=== PATIENT | male | born 1955 | race Caucasian/White ===

== ENCOUNTER 2024-08-25 15:13 | Outpatient (CLI) | payer MEDICARE, SELFPAY ==
--- NOTE | ~2024-08-25 | XR_ITS ---
AP view of the pelvis and AP and lateral views of the right hip Clinical history: Pain Findings: No acute fracture or dislocation is seen. Osseous alignment is anatomic. Bilateral hip and SI joint spaces are preserved. Soft tissues are unremarkable. Impression: No significant abnormality is seen. Reviewed, dictated and finalized at [facility]. Impression: No significant abnormality is seen.
--- NOTE | ~2024-08-25 | XR_ITS ---
EXAM/ PROCEDURE: XR lumbar spine 2-3V - 08/25/2024 15:35 CDT HISTORY: 69 years old Male with pain in rt hip. NKI COMPARISON: None available TECHNIQUE: Four view(s) FINDINGS/ IMPRESSION: There are no fractures or dislocations.Multilevel degenerative changes are seen. 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 Reviewed, dictated and finalized at location A.
--- OUTSIDE RECORDS SUMMARY | 2024-08-25 16:41 | XMS_ITS | Data Portability ---
Author Organization [place] - [facility], Main Office Address [address] [place] [address] Care Team Providers Care Semiconductor Development Technician Name Role Phone NITISH URRUTIA Primary Care Provider NITISH URRUTIA Referring Provider NITISH URRUTIA Primary Care Provider Assessment Encounter Date Assessment Date Assessment LastModified by Organization Details LastModified Time 06/16/2024 06/16/2024 69 yo M with - DM II, improved - HTG - HLD - HTN - LT KNEE PAIN, chronic - B/L HEARING LOSS, chronic - OBESITY III - H/O LT BUTTOCK ABSCESS - H/O HYPERKALEMIA HbA1c: 12.9(03/14/22) - 7.0(08/14/22) - 7.3(12/13/22) - 8.3(02/25/23) - 7.0(06/05/23) - 7.8(12/10/23) - 6.6(03/01/24) - 7.1(06/07/24) Annual labs: 03/01/24. Annual labs: 02/25/23. X-ray Lt knee: 10/21/22. Annual labs: 03/14/22. D/w pt in detail about his conditions, recent labs & imagines and further plan of care. All meds verified with pt. Meds as directed. Risks Vs benefits of Aspirin 81mg po daily with food explained. Pt agreed. Cont OTC knee sleeve as directed. Diet and exercise explained in detail. BP & DM diary education given and call us if any concerns. Fall risk precautions explained. Cont f/u with [employer] as per schedule. Cont f/u with Ophtho as per schedule. Cont f/u with Surg as per schedule. Cont f/u with Ortho as per schedule. Cont f/u with ENT as per schedule. Offered to refer to Endo; but pt declined. Januvia is too costly for pt. HM: Colonoscopy - Long time ago. Referred to GI. Cologuard 08/26/22, neg. Flu - 03/01/24. Pneumo - 02/25/23, 03/16/24. Tdap - 2022. Shingrix - Pt got it. F/u in 3-4 months. A1c before next visit. Annual labs in 03/12. [email or web address] Not available 06/16/2024 12:04:35 08/12/2024 08/12/2024 This note is dictated and transcribed by [employer]. Title Searcher variances may occur. Despite proofreading, typographical errors may occur. Occasional wrong-word or '[id number]' substitutions may have occurred due to the inherent limitations of voice recording. Read the chart carefully and recognize, using context, where substitutions have occurred. [email or web address] Not available 08/12/2024 12:24:36 Plan of Treatment Reminders Order Date Submit Date Provider Last Modified By Organization Details Last Modified Time Details Appointments Sick/Acut e 2024 02:15P Yon Urrutia MD Not available Not available Not available Follow Up 15 2024 01:30P Yon Urrutia MD Not available Not available Not available Follow Up 15 2024 11:00A Yon Urrutia MD Not available Not available Not available Establish ed Patient 15 2024 10:00A Yon Michelle DPM Not available Not available Not available Lab HbA1c (hemoglob in A1c), blood 2024 025 [facility] [address] [place], [address], 06/16/2024 11:59:08 Referral dermatolo gist referral 2024 025 [email or web address] Not available 08/25/2024 15:03:02 Procedures None recorded. Surgeries None recorded. Imaging XR, lumbosacr al spine, 2 or 3 view 2024 [facility], [address], [place], [address], 08/25/2024 17:02:49 XR, hip + pelvis, unilatera l, 2 or 3 view 2024 [facility], [address], [place], [address], 08/25/2024 15:03:03 Medication Orders meloxicam 7.5 mg tablet 2024 [facility] [address] [place], [address], 08/25/2024 14:46:33 hydroxyzi ne HCl 25 mg tablet 2024 [facility] [address] [place], [address], 08/25/2024 14:46:34 ketorolac 60 mg/2 mL intramusc ular solution 2024 025 [email or web address] Not available 08/25/2024 15:09:34 cyclobenz aprine 10 mg tablet 2024 [facility] [address] [place], [address], 08/25/2024 14:46:34 hydroxyzi ne HCl 25 mg tablet 2024 025 [facility] [address] [place], [address], 07/19/2024 14:15:42 Medrol (Luis) 4 mg tablets in a dose pack 2024 025 [facility] [address] [place], [address], 08/25/2024 14:44:35 Solu-Medr ol (PF) 125 mg/2 mL solution for injection 2024 025 [email or web address] Not available 07/19/2024 16:59:28 meloxicam 7.5 mg tablet 2024 025 [facility] [address], [address], [place], [address], 06/16/2024 11:59:36 lisinopri l 40 mg tablet 2024 025 [facility] [address], [address], [place], [address], 06/16/2024 11:59:27 atenolol 50 mg tablet 2024 025 [facility] [address], [address], [place], [address], 06/16/2024 11:59:28 Farxiga 10 mg tablet 2024 025 [facility] [address], [address], [place], [address], 06/16/2024 11:59:29 Lantus Solostar U-100 Insulin 100 unit/mL (3 mL) subcutane ous pen 2024 025 [facility] [address], [address], [place], [address], 06/16/2024 11:59:28 metformin ER 500 mg tablet,ex tended release 24 hr 2024 025 [facility] [address], [address], [place], [address], 06/16/2024 11:59:26 Ozempic 2 mg/dose (8 mg/3 mL) subcutane ous pen injector 2024 025 [facility] [address], [address], [place], [address], 06/16/2024 11:59:32 glipizide ER 5 mg tablet, extended release 24 hr 2024 025 [facility] [address] [place], [address], 06/16/2024 11:59:33 Adult Low Dose Aspirin 81 mg tablet,de layed release 2024 025 [facility] [address] [place], [address], 06/16/2024 11:59:34 atorvasta tin 10 mg tablet 2024 025 [facility] [address] [place], [address], 06/16/2024 11:59:34 Patient TargetsNo targets recorded. 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 0 high Diabe brent Scree bhavya Crite abel: <5.7% Consi stent with absen ce of diabe brent 5.7-6 .4% Consi stent with incre ased risk for diabe brent (pred iabet es) >OR=6 .5% Consi stent with diabe brent REFER ENCE: Diabe brent Care 2016, 39(Arzate ppl.1 ):s13 -s22 Not Available [facility] [address] [place], [address], 06/07/2024 15:02:17 06/24/19 25 05/05/2024 imagi ng/di agnos tic resul t No observ ation record ed. BARCODE Not Available 2024 11:56:54 08/26/19 25 08/25/2024 XR, lumbo sacra l spine , 2 or 3 view No observ ation record ed. [place] [id number] [facility] [address], [place], [address], 08/25/2024 17:02:49 Result Notes None recorded. Problems Name Problem SNOMED Code Status Onset Date Resolution Date Notes Provider Name and Address Organization Details Recorded Time Sensorineu ral hearing loss of bilateral ears 850682807 Active 2021 Not Available [facility] 3 01:24:51 Cellulitis and abscess of buttock 736897256 Active 2021 Not Available [facility] 3 01:24:51 Hypertensi ve disorder 49771961 Active 2021 Not Available [facility] 3 01:24:51 Obesity 433155964 Active 2021 Not Available [facility] 3 01:24:52 Uncontroll ed type 2 diabetes mellitus 912067669 Active 2021 Not Available [facility] 3 01:24:52 Presbycusi s 71463646 Active 2021 Not Available [facility] 3 01:24:52 Hyperlipid emia 59288218 Active 2021 Not Available [facility] 3 01:24:52 Diabetes mellitus 27066476 Active 2021 Not Available [facility] 3 01:24:52 Impaired mobility 18554263 Active 2021 Not Available [facility] 3 01:24:52 Bilateral hearing loss 47214081 Active 2021 Not Available [facility] 3 01:24:52 Hypertrigl yceridemia 604583335 Active 2022 Nitish Urrutia MD [address] [facility] [address], [place], [address] , [facility] [place] [facility] 3 09:12:36 Pain of left knee joint 6093628025846 07 Active 2022 Nitish Urrutia MD [address], [place], [address] , [place] [facility] 3 09:42:02 Effusion of joint of left knee 5839496220668 05 Active 2022 Nitish Urrutia MD [address], [place], [address] , [facility] [place] [facility] 3 12:26:48 Sensorineu ral hearing loss 62892273 Active 2022 Ros Granda RN [facility], [place] [facility] 3 14:21:12 Hyperkalem ia 12272206 Active 2022 Nitish Urrutia MD [address], [place], [address] , [facility] [place] [facility] 3 10:40:50 Onychomyco sis of toenails 374419845 Active 2022 Abdulkadir Michelle DPM [address], [place], [address] , [facility] [place] [facility] 3 15:57:22 Superficia l white onychomyco sis 135459679 Active 2022 Abdulkadir Michelle DPM [address], [place], [address] , [facility] 3 15:57:29 Tinea pedis 3395169 Active 2023 Abdulkadir Michelle DPM [address], [address], [place], [address] , [facility] [place] [facility] 4 14:49:26 Folliculit is 03613454 Active 2023 Nitish Urrutia MD [address], [place], [address] , [facility] [place] [facility] 4 12:33:38 Acute conjunctiv itis of bilateral eyes 5880855658539 04 Active 2023 Nitish Urrutia MD [address], [place], [address] , [place] [facility] [place] [facility] 4 11:39:23 Superficia l folliculit is 114010793 Active 2023 Nitish Urrutia MD [address], [place], [address] , [place] [facility] 4 11:57:07 Cellulitis of left shoulder 9307706626069 9103 Active 2023 Nitish Urrutia MD [address], [place], [address] , [place] [facility] 4 12:14:42 Type 2 diabetes mellitus without complicati on 091051189 Active 2023 Nitish Urrutia MD [address], [place], [address] , [place] [facility] 4 12:29:37 Eruption 887303794 Active 2024 Nitish Urrutia MD [address], [place], [address] , [facility] 5 14:09:11 Allergic contact dermatitis 244702270 Active 2024 Nitish Urrutia MD [address], [place], [address] , [place] [facility] 5 14:10:57 Itching of skin 371097907 Active 2024 Nitish Urrutia MD [address], [place], [address] , [place] [facility] 5 14:12:29 Diabetic on insulin 720220842 Active 2024 Abdulkadir Michelle DPM [address], [address], [place], [address] , [facility] 12:26:00 Low back pain 869855103 Active 2024 Nitish Urrutia MD [address], [place], [address] , [facility] [place] [facility] 14:42:32 Pain in right hip joint 7595305615183 02 Active 2024 Nitish Urrutia MD [address], [place], [address] , [facility] - [facility] 14:42:42 Cellulitis 772886447 Active Nitish Urrutia MD [address], [place], [address] , [facility] 14:52:01 Problem Notes None recorded. Procedures Surgical History Date Name Laterality Status Provider Name and Address Organization Details Recorded Time 025 Nail Debridement completed Abdulkadir Michelle DPM [address], [place], [address], [facility] [employer] [facility] 08/12/2024 12:24:14 024 Nail Debridement completed Abdulkadir Michelle DPM [address], [address], [place], [address], [facility] 05/03/2024 14:50:32 024 Nail Debridement completed Abdulkadir Michelle DPM [address], [address], [place], [address], [facility] - [facility] 02/03/2024 09:01:37 024 Medicare Wellness CPT Code, subsequent completed Meka Magallanes RN [facility] [employer] [facility] 09/16/2023 12:38:06 023 Ortho - Cortisone Injection completed Stanley Bradley MD [address], [place], [address], [facility] [employer] [facility] 10/30/2022 10:58:31 020 Hernia Repair completed Not Available [facility] 07/18/2022 01:24:24 Hemorrhoidectomy completed Not Available [facility] 07/18/2022 01:24:24 Tonsillectomy completed Not Available [facility] 07/18/2022 01:24:24 Carpal tunnel completed Not Available [facility] 07/18/2022 01:24:24 Imaging Results Imaging Date Name Status LastModified by Organiz ation Details LastModified Time 05/05/2024 imaging/diagnos tic result completed [facility] Information not available 06/24/2024 11:56:54 08/25/2024 XR, lumbosacral spine, 2 or 3 view active [facility] [address], [place], [address], 08/25/2024 17:02:49 Procedure Notes None recorded. Medical Equipment None Reported. Allergies Allergen ID Allergen Name Allergen Category Reaction Reaction Severity Criticality Documentation Date Start Date Code Code System Note Provider Name and Address Organization Details Recorded Time 72486 morphine medicatio n Not available Not available Not available 02/28/2023 7052 RxNorm Other react ions and sever ities : 'Adve rse react ion to subst ance' . Nitish Urrutia MD [address], [address], [place], [address] , [employer] 5 14:51:55 23675 honey preparati on food,medi cation Not available Not available Not available 03/17/2023 78073 9 RxNorm Ainsley Alvarez null, [employer] [facility] 3 16:01:39 [address] No known allergy (situatio n) Not available Not available Not available Not available 06/16/2024 94170 6003 SNOMED Nitish Urrutia MD [address], [place], [address] , [employer] [facility] 5 14:51:55 Medications Name Sig Start Date Stop Date Status Note LastModified by Organization Details LastModified Time relion pen needles 31g x 6mm 31g x 6 mm misc active Not Available Not Available No t Available cyclobenzap rine 10 mg tablet Take 1 tablet every 12 hours by oral route as needed for 90 days. 2024 active Not Available Not Available Not Avai lable cefazolin 1 gram solution for injection Take 1 g by injection route for 1 day. 06/16 completed pt hilario well Not Available Not Available Not Available doxycycline hyclate 100 mg capsule TAKE 1 CAPSULE BY MOUTH TWICE DAILY DIRECTED FOR 15 DAYS 09/15 completed Not Available Not Available Not Available atorvastati n 10 mg tablet TAKE 1 TABLET BY MOUTH ONCE DAILY AT BEDTIME active Not Available Not Available No t Available fluconazole 150 mg tablet TAKE 1 TABLET BY MOUTH EVERY WEEK 03/14 completed Not Available Not Available Not Available hydrocodone 5 mg-acetamin ophen 325 mg tablet TAKE 1-2 TABLETS BY MOUTH EVERY 6 HOURS NEEDED FOR PAIN 02/27 completed Not Available Not Available Not Available meloxicam 15 mg tablet TAKE 1 TABLET BY MOUTH ONCE DAILY 06/16 completed Not Available Not Available Not Available lisinopril 20 mg tablet TAKE 1 TABLET BY MOUTH ONCE DAILY IN THE MORNING FOR 90 DAYS 10/15 completed Not Available Not Available Not Available glipizide ER 5 mg tablet, extended release 24 hr TAKE 1 TABLET BY MOUTH ONCE DAILY IN THE MORNING active Not Available Not Available No t Available atenolol 25 mg tablet TAKE 1 TABLET BY MOUTH ONCE DAILY AT BEDTIME 12/15 completed Not Available Not Available Not Available Accu-Chek Softclix Lancets USE TO CHECK BLOOD SUGAR TWO TO THREE TIMES DAILY active Not Available Not Available No t Available sulfamethox azole 800 mg-trimetho prim 160 mg tablet Take 1 tablet every 12 hours by oral route as directed for 7 days. 06/16 completed Not Available Not Available Not Available aspirin 81 mg tablet,tahmina yed release TAKE 1 TABLET BY MOUTH ONCE DAILY AFTER A MEAL active Not Available Not Available No t Available meloxicam 7.5 mg tablet Take 1 tablet every day by oral route as needed for 90 days. 2024 active Not Available Not Available Not Avai lable Kenalog 10 mg/mL suspension for injection Take 1 mL by injection route. 12/15 completed [facility]: [phone] Not Available Not Available Not Available cephalexin 500 mg capsule TAKE 1 CAPSULE BY MOUTH EVERY 6 HOURS 05/03 completed Not Available Not Available Not Available lisinopril 10 mg tablet Take 1 tablet every day by oral route as directed for 30 days. 03/21 completed Not Available Not Available Not Available polymyxin B sulfate 10,000 unit-trimet hoprim 1 mg/mL eye drops INSTILL 1 DROP INTO AFFECTED EYE(S) EVERY 6 HOURS 05/03 completed Not Available Not Available Not Available lisinopril 30 mg tablet Take 1 tablet every day by oral route as directed for 90 days. 04/08 completed Not Available Not Available Not Available diclofenac sodium 75 mg tablet,tahmina yed release Take 1 tablet every 12 hours by oral route as needed for 30 days. 10/30 completed Not Available Not Available Not Available hydroxyzine HCl 25 mg tablet Take 1 tablet every 6-8 hours by oral route as needed for 7 days. 2024 active Not Available Not Available Not Avai lable ibuprofen 600 mg tablet Take 1 tablet every 8 hours by oral route as needed for 7 days. 03/14 completed Take with food, as neede d. Not Available Not Available Not Available methylpredn isolone 4 mg tablets in a dose pack TAKE BY MOUTH DIRECTED ON INSIDE OF PACKAGE 08/25 completed Not Available Not Available Not Available ketorolac 60 mg/2 mL intramuscul ar solution Inject 2 mL as needed by intramusc ular route for 1 day. 2024 active pt hilario well Not Available Not Available Not Available ketoconazol e 2 % topical cream APPLY TO THE AFFECTED AREA(S) ONCE DAILY FOR 14 DAYS active Not Available Not Available No t Available lisinopril 40 mg tablet TAKE 1 TABLET BY MOUTH ONCE DAILY DIRECTED active Not Available Not Available No t Available metformin ER 500 mg tablet,exte nded release 24 hr TAKE 1 TABLET BY MOUTH TWICE DAILY AFTER A MEAL active Not Available Not Available No t Available clotrimazol e 1 % topical cream APPLY TO THE AFFECTED AND SURROUNDI NG AREAS toenails BY TOPICAL ROUTE 2 TIMES PER DAY IN THE MORNING AND EVENING 2022 active Not Available Not Available Not Avai lable doxycycline hyclate 100 mg tablet TAKE 1 TABLET BY MOUTH TWICE DAILY FOR 10 DAYS 06/16 completed Not Available Not Available Not Available atenolol 50 mg tablet TAKE 1 TABLET BY MOUTH ONCE DAILY AT BEDTIME active Not Available Not Available No t Available Januvia 100 mg tablet Take 1 tablet every day by oral route at noon for 90 days. 2023 active Not Available Not Available Not Avai pedro Eliud Solostar U-100 Insulin 100 unit/mL (3 mL) subcutaneou s pen INJECT 35 UNITS SUBCUTANE OUSLY ONCE DAILY AT BEDTIME active Not Available Not Available No t Available Solu-Medrol (PF) 125 mg/2 mL solution for injection Take 125 mg by injection route for 1 day. 2024 active pt hilario well Not Available Not Available Not Available ropivacaine (PF) 5 mg/mL (0.5 %) injection solution Take 4 mL by injection route. 06/16 completed [facility] [phone] Not Available Not Available Not Available Miconazorb AF 2 % topical powder APPLY TO THE AFFECTED AREA(S) both feet BY TOPICAL ROUTE 2 TIMES PER DAY IN THE MORNING AND EVENING 06/16 completed Not Available Not Available Not Available dapaglifloz in propanediol 10 mg tablet TAKE 1 TABLET BY MOUTH ONCE DAILY active Not Available Not Available No t Available Jardiance 25 mg tablet Take 1 tablet every day by oral route in the morning for 90 days. 12/24 completed Not Available Not Available Not Available Accu-Chek Guide test strips USE TO TEST BLOOD SUGAR TWO TO THREE TIMES DAILY DIRECTED active Not Available Not Available No t Available Ozempic 0.25 mg or 0.5 mg (2 mg/1.5 mL) subcutaneou s pen injector Inject 0.5 mg every week by subcutane ous route as directed. 09/15 completed Not Available Not Available Not Available Accu-Chek Guide Me Glucose Meter USE TO CHECK BLOOD SUGAR TWO TO THREE TIMES DAILY DIRECTED active Not Available Not Available No t Available Ozempic 1 mg/dose (4 mg/3 mL) subcutaneou s pen injector INJECT 1MG ONCE A WEEK 05/03 completed Not Available Not Available Not Available pen needle, diabetic 31 gauge x 15/64 USE 1 ONCE DAILY 2024 active Not Available Not Available Not Avai lable Ozempic 2 mg/dose (8 mg/3 mL) subcutaneou s pen injector INJECT 2MG SUBCUTANE OUSLY ONCE WEEKLY DIRECTED active Not Available Not Available No t Available Ozempic 0.25 mg or 0.5 mg (2 mg/3 mL) subcutaneou s pen injector 04/08 completed Not Available Not Available Not Available Vitals Date Recorded Body height Body mass index (BMI) Body weight Body temperature Oxygen saturation Oxygen saturation in Arterial blood by Pulse oximetry Heart rate Provider Name and Address Organization Details Last Updated DateTime 167.64 cm 44.9 kg/m2 861503. 08 g 97.9 [degF] 98 % 98 % 73 /min Sheridan Eddy RN [facility] [employer] [facility] 11:53:00 Date Recorded Systolic blood pressure Diastolic blood pressure Provider Name and Address Organization Details Last Updated DateTime 06/16/2024 140 mm[Hg] 86 mm[Hg] Nitish Urrutia MD [address] [place] [address], [address], [address], [facility] [employer] 06/16/2024 12:00:48 Date Recorded Body height Body mass index (BMI) Body weight Body temperature Oxygen saturation Oxygen saturation in Arterial blood by Pulse oximetry Heart rate Systolic blood pressure Diastolic blood pressure Provider Name and Address Organization Details Last Updated DateTime 167.64 cm 45 kg/m2 731165. 27 g 98.2 [degF] 95 % 95 % 85 /min 140 mm[Hg] 90 mm[Hg] Sheridan Eddy RN [facility] [employer] [facility] 14:07:35 Date Recorded Body height Body mass index (BMI) Body weight Heart rate Respiratory rate Oxygen saturation Oxygen saturation in Arterial blood by Pulse oximetry Provider Name and Address Organization Details Last Updated DateTime 167.64 cm 45 kg/m2 954477. 27 g 89 /min 14 /min 97 % 97 % Priya Dowell [facility] [employer] [facility] 11:20:50 Date Recorded Body height Body mass index (BMI) Body weight Body temperature Oxygen saturation Oxygen saturation in Arterial blood by Pulse oximetry Heart rate Systolic blood pressure Diastolic blood pressure Provider Name and Address Organization Details Last Updated DateTime 5 167.64 cm 44.3 kg/m2 076220. 46 g 98.2 [degF] 95 % 95 % 106 /min 140 mm[Hg] 80 mm[Hg] Sheridan EddyRN [place] [facility] 14:38:14 Social History Question Answer Notes LastModified by Organization Details LastModified Time Tobacco Smoking Status Never Smoker Not Available [facility] 07/18/2022 01:24:11 Do You Have An Advance Directive? No [id number] Information not available 07/18/2022 What Is Your Level Of Alcohol Consumption? Occasional 2 Per Week MIGRATION.030 [id number] Information not available 07/18/2022 Are You Blind Or Do You Have Difficulty Seeing? Yes Glasses MIGRATION.030 487240 Information not available 07/18/2022 What Is Your Level Of Caffeine Consumption? Moderate MIGRATION.030 762292 Information not available 07/18/2022 In The 14 Days Before Symptom Onset, Have You Had Close Contact With A Laboratory-conf irmed COVID-19 While That Case Was Ill? No MIGRATION.030 490853 Information not available 07/18/2022 In The 14 Days Before Symptom Onset, Have You Had Close Contact With A Person Who Is Under Investigation For COVID-19 While That Person Was Ill? No MIGRATION.0301 648492 Information not available 07/18/2022 Are You Deaf Or Do You Have Serious Difficulty Hearing? Yes Hearing Aides MIGRATION.030 593782 Information not available 07/18/2022 What Type Of Diet Are You Following? REGULAR MIGRATION.030 906826 Information not available 07/18/2022 Have There Been Any Changes To Your Family Or Social Situation? No MIGRATION.030 318907 Information not available 07/18/2022 What Is The Fluoride Status Of Your Home? Fluoridated MIGRATION.030 960947 Information not available 07/18/2022 Do You Use Insect Repellent Routinely? Yes MIGRATION.0301 885855 Information not available 07/18/2022 Where Do You Live? [place] MIGRATION.030 410168 Information not available 07/18/2022 Do You Have A Medical Power Of Moisture Machine Tender? No MIGRATION.030 775043 Information not available 07/18/2022 What Was The Date Of Your Most Recent Tobacco Screening? 09/16/2023 [email or web address] Information not available 09/16/2023 Do You Have Any Pets? Yes MIGRATION.0301 189399 Information not available 07/18/2022 What Is Your Relationship Status? MIGRATION.0301 719782 Information not available 07/18/2022 Do You Have Smoke And Carbon Monoxide Detectors In Your Home? No Smoke Detectors No Carbon Monoxide MIGRATION.0301 864353 Information not available 07/18/2022 Are You Passively Exposed To Smoke? No MIGRATION.0301 961395 Information not available 07/18/2022 Are There Any Smokers In Your House? No MIGRATION.0301 051828 Information not available 07/18/2022 Do You Participate In Social [employer]? No MIGRATION.0301 724269 Information not available 07/18/2022 Do You Feel Stressed (tense, Restless, Nervous, Or Anxious, Or Unable To Sleep At Night)? [id number] MIGRATION.0301 927467 Information not available 07/18/2022 Do You Use Any Illicit Or Recreational Drugs? No MIGRATION.0301 474885 Information not available 07/18/2022 Do You Use Sunscreen Routinely? Yes MIGRATION.0301 741503 Information not available 07/18/2022 Have You Recently Traveled Abroad? No MIGRATION.0301 637752 Information not available 07/18/2022 Are You Currently In School? No MIGRATION.0301 193428 Information not available 07/18/2022 Sex: Male Functional Status Question Answer Note LastModified by Organizat ion Details LastModified Time Do you have difficulty walking or climbing stairs? Yes once in a while; L knee bone on bone MIGRATION.697608 6677 Information not available 07/18/2022 Do you have transportation difficulties? Yes MIGRATION.487703 4260 Information not available 07/18/2022 Are you able to walk? YESWOREST MIGRATION.676229 8351 Information not available 07/18/2022 Do you have difficulty doing errands alone? Yes MIGRATION.861424 6961 Information not available 07/18/2022 Are you able to care for yourself? Yes MIGRATION.301777 3021 Information not available 07/18/2022 Do you have difficulty dressing or bathing? Yes MIGRATION.601774 0683 Information not available 07/18/2022 What is your exercise level? None MIGRATION.137971 1362 Information not available 07/18/2022 Mental Status Question Answer Note LastModified by Organizat ion Details LastModified Time Do you have difficulty concentrating, remembering or making decisions? No MIGRATION.[id number] 6 Information not available 07/18/2022 Family History Relationship Description Onset Age of this Age Resolved Age Notes LastModified by Organization Details LastModified Time Sister Family history of malignant neoplasm Not available 2022 09:58:42 Mother Hearing loss [email or web address] Not avail able 02/28/2023 12:04:58 Father Hearing loss [email or web address] Not avail able 02/28/2023 12:05:05 Unspecified Relation Diabetes mellitus AUNT [email or web address] Not available 2022 16:07:06 Medical History Condition Response BLINDNESS N RHEUMATIC FEVER N KIDNEY STONES N BLADDER PROBLEMS N MRSA N OTHER # 1 N POLIO N LUNG DISEASE/DISORDER N HISTORY OF DRUG ABUSE N RADIATION / CHEMOTHERAPY N COPD N Other # 2 N BLOOD DISEASES N SURGERY N EAR OR HEARING PROBLEMS N MUMPS N SHINGLES N FEMALE PROBLEMS / INFECTIONS N DEPRESSION (INCLUDING POST ) N BOWEL PROBLEMS N STROKE/TIA N THYROID DISEASE N ULCERS N BENIGN PROSTATIC HYPERPLASIA N MEASLES N CERVICALGIA N TB SKIN TEST N HYPOTENSION N MYOCARDIAL INFARCTION N PARAPELGIA N OBESITY N GERD/NAUSEA N ANEURYSM N URINARY/BLADDER/KIDNEY PROBLEMS N CORONARY ARTERY DISEASE (CAD) N MENIERE'S DISEASE N ADDICTION CONCERNS N ENDOMETRIOSIS N USE OF BLOOD THINNERS N SKIN PROBLEMS N EMPHYSEMA N GASTROINTESTINAL DISORDER N MUSCLE,JOINT OR BONE PROBLEMS N GASTROINTESTINAL BLEEDING N BLOOD CLOTS N ASTHMA N CATARACTS N ERECTILE DYSFUNCTION N GI PROBLEMS N CHF N Low Testosterone N NEUROPATHY N INFERTILITY N AIDS/HIV N FRACTURES N CHEMOTHERAPY / RADIATION N VISION/EYE PROBLEMS N LIVER DISEASE N MALE HYPOGONADISM N HYPERTENSION N TOURETTE'S N ANXIETY DISORDER N BLOOD TRANSFUSION N ANEMIA/BLOOD DISORDER N CHRONIC EAR INFECTIONS N BRONCHITIS N TUBERCULOSIS N GLAUCOMA N FOOT PROBLEM N DIVERTICULITIS N SLEEP APNEA N CHICKENPOX N ALLERGIES/HAYFEVER N INFECTIOUS DISEASE N PROSTATE N HEART ARRHYTHMIA N INSOMNIA N HIGH CHOLESTEROL / HYPERLIPIDEMIA N EYE PROBLEMS N HYPERTHYROIDISM N EATING DISORDER N EDEMA N CHRONIC PAIN SYNDROME N CAROTID BLOCKAGE N CONSTIPATION N BACK / NECK PROBLEMS N HAVE YOU BEEN HOSPITALIZED OR SEEN IN [facility] IN THE PAST YEAR ? N ATHEROSCLEROSIS N BREAST PROBLEMS N DIALYSIS N ECZEMA N FIBROMYALGIA N OSTEOPOROSIS N ARTHRITIS N NO SIGNIFICANT PAST MEDICAL HISTORY N APPENDICITIS N DIABETES, TYPE Y BAD TEETH N HEARTBURN / REFLUX N ADD/ADHD N AUTISM SPECTRUM DISORDER (ASD) N HEPATITIS / LIVER DISEASE N PULMONARY DISEASE N GOUT N SLEEP DISORDER N ALZHEIMER'S DISEASE N PAIN N DEMENTIA N HERPES N SEIZURES/EPILEPSY N HEADACHES/MIGRAINES N VASCULAR DISEASE N PACEMAKER N DIZZINESS N HEART DISEASE/HEART PROBLEMS N KIDNEY DISEASE N SCARLET FEVER N MULTIPLE SCLEROSIS N DEVELOPMENTAL OR BEHAVIORAL DISORDERS N MENTAL DISORDER/ILLNESS N CANCER: SPECIFY N CARDIAC ARRHYTHMIA N PNEUMONIA N ATRIAL FIBRILLATION N Gall Stones N PULMONARY EMBOLISM N AUTOIMMUNE DISEASE N Immunizations Vaccine Type Date Status Note Provider [facility] e and Address Organization Details Recorded Time SARS-COV-2 (COVID-19) vaccine, UNSPECIFIED 0 completed Not Available [facility] 01:25:31 zoster recombinant 3 completed MIKAYLA Conti [facility] 12/04/2022 15:17:37 [facility]14[facility] 11:08:41 Influenza, high-dose, quadrivalent, PF 3 completed Ron Alvarez [facility] 02/25/2023 12:53:43 pneumococcal polysaccharide PPV23 3 completed Ron Alvarez [facility] 02/25/2023 17:43:56 Influenza, high-dose, trivalent, PF 4 completed Ron Alvarez [facility] 03/01/2024 12:22:01 Pneumococcal conjugate PCV20, polysaccharide SZL407 conjugate, adjuvant, PF 4 completed [facility] 03/16/2024 12:09:41 Past Encounters Encounter ID Performer Location Encounter Start Date Encounter Closed Date Diagnosis/Indication Diagnosis SNOMED-CT Code Diagnosis ICD10 Code Diagnosis Note [id number] [facility] [address] [address] 02/27/2022 00:00:00 02/27/2022 16:12:55 [id number] [facility] General Surgery [address] [place] [address] 03/07/2022 00:00:00 03/07/2022 13:39:50 [id number] [facility] Family Practice Raimundo [address] [place] [address] 1 03/14/2022 00:00:00 03/14/2022 11:41:52 [id number] [facility] [place] [address] [place] [address] 1 03/21/2022 00:00:00 03/21/2022 15:15:28 [id number] [facility] Practice Raimundo [address] [place] [address] 1 04/18/2022 00:00:00 04/18/2022 12:48:42 [id number] [facility] ENT [place] [address] [place] [address] 04/25/2022 00:00:00 04/25/2022 14:48:32 [id number] [facility] Practice [address] [address] 07/10/2022 00:00:00 07/10/2022 10:38:10 [id number] Nitish Urrutia MD [facility] [address] [address] 08/14/2022 08:50:43 08/14/2022 09:14:36 Uncontrolled type 2 diabetes mellitus 546590329 E11.65 Hyperlipidemia 09530737 E78.5 Hypertensive disorder 38 142486 I10 Sensorineu ral hearing loss of bilateral ears 954851428 H90.3 Obesity 326281160 E66.9 Screening for malignant neoplasm of colon 119429802 Z12.11 Hypertriglyceridemia 302 745781 E78.2 [id number] Nitish Urrutia MD [facility] Family Practice [address] [address] 10/15/2022 09:23:29 10/15/2022 09:58:24 Hypertensive disorder 36787507 I10 Uncontroll ed type 2 diabetes mellitus 150575445 E11.65 Improved Hyperlipidemia 04526454 E78.5 Hypertriglyceridemia 302 201784 E78.2 Sensorineu ral hearing loss of bilateral ears 097363730 H90.3 Obesity 423479614 E66.9 Pain of le ft knee joint 7400676640 29344 M25.562 [id number] Nitish Urrutia MD [address] [address] 10/28/2022 11:57:43 10/28/2022 12:31:59 Uncontrolled type 2 diabetes mellitus 728477633 E11.65 Improved Hypertensive disorder 38 396542 I10 Hyperlipidemia 36904669 E78.5 Hypertriglyceridemia 302 934717 E78.2 Sensorineu ral hearing loss of bilateral ears 619873656 H90.3 Obesity 384329027 E66.9 Pain of le ft knee joint 4320246111 82099 M25.562 Effusion o f joint of left knee 8879714216 93057 M25.462 [id number] Stanley Bradley MD [facility] Ortho [place] [address] [place] [address] 10/30/2022 09:32:29 10/30/2022 10:27:47 Pain of left knee joint 7185596720 49293 M25.562 [id number] Mishel Schwab NP [facility] Ortho [place] [address] [place] [address] 12/11/2022 10:48:41 12/11/2022 11:03:45 [id number] Nitish Urrutia MD [address] [address] 12/13/2022 11:33:36 12/13/2022 11:47:09 [id number] Nitish Urrutia MD [address] [address] 12/24/2022 08:49:23 12/24/2022 09:30:43 Effusion of joint of left knee 7300746331 98911 M25.462 improved Pain of le ft knee joint 0692247896 26507 M25.562 improved Uncontroll ed type 2 diabetes mellitus 802107072 E11.65 Improved Hypertensive disorder 38 535798 I10 Hyperlipidemia 49511249 E78.5 Hypertriglyceridemia 302 359777 E78.2 Sensorineu ral hearing loss of bilateral ears 381059249 H90.3 Obesity 629323066 E66.9 [id number] Nitish Urrutia MD [address] [address] 02/25/2023 10:20:04 02/25/2023 10:52:06 Uncontrolled type 2 diabetes mellitus 861243958 E11.65 Improved Effusion o f joint of left knee 0680388273 62191 M25.462 improved Pain of le ft knee joint 8142335032 03260 M25.562 Hypertensive disorder 38 417464 I10 Hyperlipidemia 76953638 E78.5 Hypertriglyceridemia 302 931311 E78.2 Sensorineu ral hearing loss of bilateral ears 132475236 H90.3 Obesity 462440884 E66.9 Screening for malignant neoplasm of prostate 225352718 Z12.5 Administra tion of influenza vaccine 94719921 Z23 Active or passive immunization 465506120 Z23 [id number] Gerardo Rice MD [facility] ENT [place] [address] [place] [address] 03/05/2023 13:59:16 03/05/2023 14:26:59 Presbycusis 73392350 H91.13 [id number] Nitish Urrutia MD [address] [address] 03/11/2023 10:26:26 03/11/2023 11:00:24 Uncontrolled type 2 diabetes mellitus 402103849 E11.65 Effusion o f joint of left knee 8505187280 14496 M25.462 improved Pain of le ft knee joint 4590553803 35511 M25.562 Hypertensive disorder 38 390404 I10 Hyperlipidemia 82604844 E78.5 Hypertriglyceridemia 302 449681 E78.2 Sensorineu ral hearing loss of bilateral ears 156112788 H90.3 Obesity 760156446 E66.9 Hyperkalemia 69043656 E8 7.5 [id number] Abdulkadir Michelle DPM [facility] Podiatry [place] [address] [place] [address] 03/17/2023 15:17:27 03/17/2023 17:10:48 Superficial white onychomycosis 028905925 B35.1 toenails 1 through 10educated on treatment optionsRx clotrimazo lefollow-u p 3 months Diabetes mellitus 216288 09 E11.9 continue diabetic control per PCP [id number] Nitish Urrutia MD [address] [address] 04/08/2023 11:55:33 04/08/2023 12:27:36 Uncontrolled type 2 diabetes mellitus 823937895 E11.65 Effusion o f joint of left knee 0137707466 36402 M25.462 improved Pain of le ft knee joint 9430190175 38799 M25.562 Hypertensive disorder 38 864888 I10 Hyperlipidemia 53015115 E78.5 Hypertriglyceridemia 302 139312 E78.2 Sensorineu ral hearing loss of bilateral ears 889437084 H90.3 Obesity 395311083 E66.9 Hyperkalemia 81115361 E8 7.5 [id number] Nitish Urrutia MD [address] [address] 06/05/2023 10:49:20 06/05/2023 11:38:15 [id number] Abdulkadir Michelle DPM [facility] Podiatry [place] [address] [place] [address] 06/16/2023 14:17:28 06/16/2023 15:04:14 Tinea pedis 9539742 B35.3 Educated on conditionD aily foot hygieneFol low-up 10 -14 days, reexam [id number] Nitish Urrutia MD [address] [address] 06/17/2023 12:20:05 06/17/2023 12:46:57 Hyperkalemia 14006560 E87.5 resolved Uncontroll ed type 2 diabetes mellitus 802254797 E11.65 Effusion o f joint of left knee 4366221514 20473 M25.462 improved Pain of le ft knee joint 0373875278 59637 M25.562 Hypertensive disorder 38 431646 I10 Hyperlipidemia 62449114 E78.5 Hypertriglyceridemia 302 138291 E78.2 Sensorineu ral hearing loss of bilateral ears 962041158 H90.3 Obesity 904721606 E66.9 Folliculitis 88149553 L7 3.9 [id number] Abdulkadir Michelle DPM [facility] Podiatry [place] [address] [place] [address] 06/30/2023 14:38:53 07/01/2023 14:02:13 Tinea pedis 6407004 B35.3 Educated on conditionD aily foot hygieneedu cated on shoe hygienemay continue the ketoconazo le toenailsfo llow-up as needed [id number] Nitish Urrutia MD [address] [address] 09/08/2023 14:25:59 09/08/2023 14:37:16 [id number] Nitish Urrutia MD [address] [address] 09/16/2023 12:05:46 09/16/2023 12:34:11 Hyperkalemia 84376406 E87.5 resolved Uncontroll ed type 2 diabetes mellitus 751048489 E11.65 Effusion o f joint of left knee 4226597856 50432 M25.462 improved Pain of le ft knee joint 8097603556 52278 M25.562 Hypertensive disorder 38 740611 I10 Hyperlipidemia 56256771 E78.5 Hypertriglyceridemia 302 984775 E78.2 Sensorineu ral hearing loss of bilateral ears 162566229 H90.3 Obesity 205260976 E66.9 Adult heal th examination 118166545 Z00.00 Screening for disorder 602373982 Z13.9 [id number] Abdulkadir Michelle DPM [facility] Podiatry [place] [address] [place] [address] 09/29/2023 14:10:24 09/29/2023 15:51:34 Diabetes mellitus 18268778 E11.9 continue diabetic control per PCPfollow- up 4 months [id number] Nitish Urrutia MD [address] [address] 12/10/2023 14:01:28 12/10/2023 14:21:46 [id number] Nitish Urrutia MD [address] [address] 12/16/2023 11:33:55 12/16/2023 12:29:37 Uncontrolled type 2 diabetes mellitus 863413507 E11.65 Effusion o f joint of left knee 1057470191 64540 M25.462 improved Pain of le ft knee joint 8563062980 46711 M25.562 Hypertensive disorder 38 448089 I10 Hyperlipidemia 62623381 E78.5 Hypertriglyceridemia 302 000437 E78.2 Sensorineu ral hearing loss of bilateral ears 185502850 H90.3 Obesity 271646515 E66.9 [id number] Abdulkadir Michelle DPM [facility] Podiatry [place] [address] [place] [address] 02/02/2024 14:17:48 02/03/2024 11:57:49 Diabetes mellitus 25744181 E11.9 continue diabetic control per PCPfollow- up 4 months Onychomyco sis of toenails 428804870 B35.1 patient currently is using over-the-c ounter medication with curcuminwh ich has stained his toenails yellowwill allow patient to use over-the-c ounter medication and if not improved in 3 months will discuss other optionsnai ls debrided without incident [id number] Nitish Urrutia MD [address] [address] 03/01/2024 11:16:58 03/01/2024 11:58:15 Uncontrolled type 2 diabetes mellitus 533521842 E11.65 Effusion o f joint of left knee 8706638384 58567 M25.462 improved Pain of le ft knee joint 4699064961 66844 M25.562 Hypertensive disorder 38 545132 I10 Hyperlipidemia 51501319 E78.5 Hypertriglyceridemia 302 009509 E78.2 Sensorineu ral hearing loss of bilateral ears 193290107 H90.3 Obesity 590884004 E66.9 Administra tion of influenza vaccine 71905170 Z23 Screening for malignant neoplasm of prostate 210538331 Z12.5 Acute conj unctivitis of bilateral eyes 7945666519 33716 H10.33 [id number] Nitish Urrutia MD [address] [address] 03/16/2024 11:17:54 03/16/2024 11:54:54 Uncontrolled type 2 diabetes mellitus 066495681 E11.65 Hypertensive disorder 38 439496 I10 Hyperlipidemia 81280280 E78.5 Hypertriglyceridemia 302 722439 E78.2 Effusion o f joint of left knee 5235130738 46227 M25.462 improved Pain of le ft knee joint 6535475864 90091 M25.562 Sensorineu ral hearing loss of bilateral ears 894173709 H90.3 Obesity 365554897 E66.9 Active or passive immunization 445722800 Z23 [id number] Nitish Urrutia MD [address] [address] 05/03/2024 11:56:02 05/03/2024 12:32:14 Seen in emergency clinic 291977912 Z76.89 UC Cellulitis of left shoulder 6676722762 0401266 L03.114 Type 2 lady betes mellitus without complication 287251644 E11.9 Obesity 918046999 E66.9 [id number] Abdulkadir Michelle DPM [facility] Podiatry [place] [address] [place] [address] 05/03/2024 14:19:59 05/14/2024 08:58:19 Diabetes mellitus 95465488 E11.9 continue diabetic control per PCPfollow- up 4 months Onychomyco sis of toenails 119029792 B35.1 patient currently is using over-the-c ounter medication with curcuminwh ich has stained his toenails yellowwill allow patient to use over-the-c ounter medication and if not improved in 3 months will discuss other optionsnai ls debrided without incident [id number] Nitish Urrutia MD [address] [address] 06/07/2024 10:29:20 06/08/2024 11:09:39 [id number] Nitish Urrutia MD [address] [address] 06/16/2024 11:41:49 06/16/2024 12:05:41 Uncontrolled type 2 diabetes mellitus 931820684 E11.65 Hypertensive disorder 38 412497 I10 Hyperlipidemia 90965579 E78.5 Hypertriglyceridemia 302 358936 E78.2 Effusion o f joint of left knee 7868187097 95617 M25.462 improved Pain of le ft knee joint 3581573848 67431 M25.562 Sensorineu ral hearing loss of bilateral ears 170864352 H90.3 Obesity 373311827 E66.9 [id number] Nitish Urrutia MD [address] [address] 07/19/2024 13:57:54 07/19/2024 17:13:56 Eruption 639815235 R21 Generalize d Allergic c ontact dermatitis 094533690 L23.9 Itching of skin 51460216 0 L29.9 [id number] Abdulkadir Michelle DPM [facility] Podiatry [place] [address] [place] [address] 08/12/2024 11:16:05 08/13/2024 13:34:10 Diabetes mellitus 08132758 E11.9 continue diabetic control per PCPfollow- up 4 months Onychomyco sis of toenails 525013230 B35.1 patient currently is using over-the-c ounter medication with curcuminwh ich has stained his toenails yellowappl y urea lotion to nails to soften toenailwil l allow patient to use over-the-c ounter medication and if not improved in 3 months will discuss other optionsnai ls debrided without incident Diabetic on insulin 1707 60070 Z79.4 [id number] Nitish Urrutia MD [facility] [address] [address] 08/25/2024 14:25:44 08/25/2024 15:03:02 Fall 8967103 W19.XXXA Fall risk precaution s explained. Educated pt about alarming symptoms to monitor at home. Low back pain 696490619 M54.50 Pain in ri ght hip joint 9543485135 72354 M25.551 Pain of le ft knee joint 9239622941 55425 M25.562 Chronic Eruption 359905748 R21 Generalize d Obesity 734933115 E66.9 Health Concerns Section Related Observation LastModified by Organization Detai ls LastModified Time None Recorded Concern Status LastModified by Organization Details LastModified Time None Recorded Advance Directives Directive N: Payers Encounter Date Sequence Insurance Name Policy Number Policy Wolff Covered Member ID Wolff Member ID Guarantor Name 06/07/2024 1 [facility] (MEDICARE REPLACEMENT/A DVANTAGE - HMO) [id number] Seamus Martinez [id number] Seamus Martinez 06/16/2024 1 [facility] (MEDICARE REPLACEMENT/A DVANTAGE - HMO) [id number] Seamus Martinez [id number] Seamus Martinez 07/19/2024 1 [facility] (MEDICARE REPLACEMENT/A DVANTAGE - HMO) [id number] Seamus Martinez [id number] Seamus Martinez 08/12/2024 1 [facility] (MEDICARE REPLACEMENT/A DVANTAGE - HMO) [id number] Seamus Martinez [id number] Seamus Martinez 08/25/2024 1 [facility] (MEDICARE REPLACEMENT/A DVANTAGE - HMO) [id number] Seamus Martinez [id number] Seamus Martinez Notes Date Note Type Note Provider Name and Address Organization Details Recorded Time 06/16/2024 text/html Pt is here for f /u on his lab, meds and chronic conditions. Doing overall well. Denies any problem with meds. Denies any new concern. Pt has not gone for new hearing aids yet. Pt is f/u with Ortho for his chronic knee pain and got steroid shot and PT with them. Doing much better now.Pt has chronic b/l hearing loss for last several years and is on hearing aids and is f/u with ENT. Nitish Urrutia MD [address], [place], [address], [employer] 06/16/2024 12:06:21 07/19/2024 text/html ACV: C/o rash and itching all over his body for last couple weeks. Pt says she got a new Snuggle fabric softener soap few weeks ago and his rash started after he used it. Denies any insect bite. No pain over the lesions/drainage from it. Nitish Urrutia MD [address], [place], [address], [employer] 07/19/2024 14:19:31 08/12/2024 text/html . Patient 69-year-old male who returns the office for onychomycosis of the toenails. Patient states overall he is doing better his nails are less thick he has been using topical medication on the nails. I did recommend he utilize a urea lotion to see if the keratin can break down and the [id number]-[id number] medication be more effective. Patient denies any other complaints. Abdulkadir Michelle DPM [address], [place], [address], [employer] 08/12/2024 12:26:10 08/25/2024 text/html ACV: C/o fall at home when he was taking shower 3 days ago and hurt his Rt buttock against the bath tub. No head trauma/LOC. C/o pain over his Rt buttock and lower back area since than. No other area pain. No other concern. Still has rash over his both UEs, its much better compared to last visit. No drainage from it. Nitish Urrutia MD [address] [facility] [address], [place], [address], [place] [facility] 08/25/2024 14:57:23
--- OUTSIDE RECORDS SUMMARY | 2024-08-25 16:41 | XMS_ITS | Continuity of Care Document ---
Author Organization [facility] Address [address] [place] [address] [place] [address] Phone Care Team Providers Care Pharmacy Coordinator Name Role Phone Lee Kelly MD Unavailable Unavailable Advance Directives Directive Yes / No Effective Date File Name No Information Encounters Encounter Description Practice Location Reason(s) For Visit Diagnoses Date Provider Providers Copied on Encounter [facility], [address] [place], [id number], [place] tel:[phone] [facility] No Information Robin Howard. [address] [place], [place], [id number], [place]. tel:[phone] Family History Family Member Type Diagnosis Age At Onset No Information Payers Payer name Insurance type Covered constitution party ID Authoriza tion(s) No Information Social History Type Description Quantity Date Captured Comments Sex Male Smoking Status No Information Chief Complaint And Reason For Visit No Information Plan Of Treatment Date Type Action Status No Information History Of Present Illness Encounter Date Complaint History Of Prese nt Illness No Information Instructions Date Instruction Additional Infor mation No Information Assessments Type Assessment Date No Information
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
--- OUTSIDE RECORDS SUMMARY | 2024-08-25 16:42 | XMS_ITS | Continuity of Care Document ---
Author Organization [place] - [facility], [facility] Raimundo Address [address] [place] [address] Care Team Providers Care Aids Social Worker Name Role Phone NITISH URRUTIA Primary Care Provider NITISH URRUTIA Referring Provider NITISH URRUTIA Primary Care Provider Assessment No assessment recorded. Plan of Treatment Reminders Order Date Submit Date Provider Last Modified By Organization Details Last Modified Time Details Appointments Sick/Acut e 2024 02:15P M Nitish Urrutia MD Not available Not available Not available Follow Up 15 2024 01:30P M Nitish Urrutia MD Not available Not available Not available Follow Up 15 2024 11:00A M Nitish Urrutia MD Not available Not available Not available Establish ed Patient 15 2024 10:00A M Abdulkadir Michelle DPM Not available Not available Not available Lab None recorded. Referral dermatolo gist referral 2024 025 [email or web address] Not available 08/25/2024 15:03:02 Procedures None recorded. Surgeries None recorded. Imaging XR, lumbosacr al spine, 2 or 3 view [facility]24 [facility]25 [email or web address] [address] [place] [address], [id number], 08/25/2024 17:02:49 XR, hip + pelvis, unilatera l, 2 or 3 view 2024 025 [email or web address] [facility], [address] [place] [address], [id number], 08/25/2024 15:03:03 Medication Orders meloxicam 7.5 mg tablet 2024 025 [facility] [address] [place], [address], 08/25/2024 14:46:33 hydroxyzi ne HCl 25 mg tablet 2024 025 [facility] [address] [place], [address], 08/25/2024 14:46:34 ketorolac 60 mg/2 mL intramusc ular solution 2024 025 [email or web address] Not available 08/25/2024 15:09:34 cyclobenz aprine 10 mg tablet 2024 025 [facility] [address] [place], [address], 08/25/2024 14:46:34 Patient TargetsNo targets recorded. Patient InstructionsNo instructions recorded. 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 [facility] [address], [place], [address], 08/25/2024 17:02:49 Result Notes None recorded. Problems Name Problem SNOMED Code Status Onset Date Resolution Date Notes Provider Name and Address Organization Details Recorded Time Sensorineu ral hearing loss of bilateral ears 090527610 Active 2021 Not Available [facility] 3 01:24:51 Cellulitis and abscess of buttock 662467909 Active 2021 Not Available [facility] 3 01:24:51 Hypertensi ve disorder 46942886 Active 2021 Not Available [facility] 3 01:24:51 Obesity 834813023 Active 2021 Not Available [facility] 3 01:24:52 Uncontroll ed type 2 diabetes mellitus 457797664 Active 2021 Not Available [facility] 3 01:24:52 Presbycusi s 65278817 Active 2021 Not Available [facility] 3 01:24:52 Hyperlipid emia 54870816 Active 2021 Not Available [facility] 3 01:24:52 Diabetes mellitus 13598672 Active 2021 Not Available [facility] 3 01:24:52 Impaired mobility 37626921 Active 2021 Not Available [facility] 3 01:24:52 Bilateral hearing loss 82770908 Active 2021 Not Available [facility] 3 01:24:52 Hypertrigl yceridemia 858318842 Active 2022 Nitish Urrutia MD [address], [place], [address] , [employer] 3 09:12:36 Pain of left knee joint 7308041881679 07 Active 2022 Nitish Urrutia MD [address], [place], [address] , [employer] [facility] 3 09:42:02 Effusion of joint of left knee 3910299439747 05 Active 2022 Nitish Urrutia MD [address], [address], [place], [address] , [employer] [facility] [employer] 3 12:26:48 Sensorineu ral hearing loss 38373298 Active 2022 Ros Granda RN null, [facility] [employer] [facility] 3 14:21:12 Hyperkalem ia 35215130 Active 2022 Nitish Urrutia MD [address], [address], [place], [address] , [employer] 3 10:40:50 Onychomyco sis of toenails 368129092 Active 2022 Abdulkadir Michelle DPM [address], [place], [address] , [employer] 3 15:57:22 Superficia l white onychomyco sis 795039925 Active 2022 Abdulkadir Michelle DPM [address], [place], [address] , [employer] 3 15:57:29 Tinea pedis 8170600 Active 2023 Abdulkadir Michelle DPM [address], [place], [address] , [employer] 4 14:49:26 Folliculit is 69018154 Active 2023 Nitish Urrutia MD [address], [place], [address] , [employer] 4 12:33:38 Acute conjunctiv itis of bilateral eyes 0604609355288 04 Active 2023 Nitish Urrutia MD [address], [place], [address] , [employer] 4 11:39:23 Superficia l folliculit is 634283188 Active 2023 Nitish Urrutia MD [address], [place], [address] , [employer] 4 11:57:07 Cellulitis of left shoulder 4135485895482 9103 Active 2023 Nitish Urrutia MD [address], [place], [address] , [employer] 4 12:14:42 Type 2 diabetes mellitus without complicati on 822006848 Active 2023 Nitish Urrutia MD [address], [place], [address] , [employer] 4 12:29:37 Eruption 113093638 Active 2024 Nitish Urrutia MD [address], [place], [address] , [employer] 5 14:09:11 Allergic contact dermatitis 036525383 Active 2024 Nitish Urrutia MD [address], [place], [address] , [employer] [facility] [employer] 5 14:10:57 Itching of skin 687998809 Active 2024 Nitish Urrutia MD [address], [place], [address] , [employer] 5 14:12:29 Diabetic on insulin 900260839 Active 2024 Abdulkadir Michelle DPM [address], [place], [address] , [employer] [facility] [employer] 5 12:26:00 Low back pain 449983142 Active 2024 Nitish Urrutia MD [address], [place], [address] , [employer] 5 14:42:32 Pain in right hip joint 6452500895210 02 Active 2024 Nitish Urrutia MD [address], [place], [address] , [employer] [facility] [employer] 5 14:42:42 Cellulitis 576996055 Active Nitish Urrutia MD [address], [place], [address] , [employer] 5 14:52:01 Problem Notes None recorded. Procedures Surgical History Date Name Laterality Status Provider Name and Address Organization Details Recorded Time 025 Nail Debridement completed Abdulkadir Michelle DPM [address], [place], [address], [employer] 08/12/2024 12:24:14 024 Nail Debridement completed Abdulkadir Michelle DPM [address], [place], [address], [employer] [facility] [employer] 05/03/2024 14:50:32 024 Nail Debridement completed Abdulkadir Michelle DPM [address], [place], [address], [employer] 02/03/2024 09:01:37 024 Medicare Wellness CPT Code, subsequent completed August [place] [employer] [facility] [employer] 09/16/2023 12:38:06 023 Ortho - Cortisone Injection completed Stanley Bradley MD [address], [place], [address], [employer] 10/30/2022 10:58:31 020 Hernia Repair completed Not Available [facility] 07/18/2022 01:24:24 Hemorrhoidectomy completed Not Available [facility] 07/18/2022 01:24:24 Tonsillectomy completed Not Available [facility] 07/18/2022 01:24:24 Carpal tunnel completed Not Available [facility] 07/18/2022 01:24:24 Imaging Results None recorded. Procedure Notes None recorded. Medical Equipment None Reported. Allergies Allergen ID Allergen Name Allergen Category Reaction Reaction Severity Criticality Documentation Date Start Date Code Code System Note Provider Name and Address Organization Details Recorded Time 36280 morphine medicatio n Not available Not available Not available 02/28/2023 7052 RxNorm Other react ions and sever ities : 'Adve rse react ion to subst ance' . Nitish Urrutia MD [address], [place], [address], [employer] [facility] [employer] 14:51:55 04344 honey preparati on food,medi cation Not available Not available Not available 03/17/2023 08420 9 RxNorm Ainsley Alvarez null, [facility] [employer] 3 16:01:39 49332 No known allergy (situatio n) Not available Not available Not available Not available 06/16/2024 95903 6003 SNOMED Nitish Urrutia MD [address] [facility], [facility] [address], [place], [address] [place] [address] [employer] 5 14:51:55 Medications Name Sig Start Date [...] 1 mL by injection route. 12/[address] [facility]: 0003- [phone]- [phone] Not Available Not Available [...] Not Available Not Available Not Avai lable Lantus Solostar U-100 Insulin 100 unit/mL (3 [...] 4 mL by injection route. 06/[address] [facility] [phone]- [phone] Not Available Not Available Not [...] Updated DateTime 5 167.64 cm 44.3 kg/m2 051839. 46 g 98.2 [degF] 95 % 95 % 106 /min 140 mm[Hg] 80 mm[Hg] Sheridan EddyRN [place] [facility] 5 14:38:14 Social History Question Answer Notes LastModified by Organization Details LastModified Time Tobacco Smoking Status Never Smoker Not Available [facility] 07/18/2022 01:24:11 Do You Have An Advance Directive? No MIGRATION.[id number] Information not available 07/18/2022 What Is Your Level Of Alcohol Consumption? Occasional 2 Per Week MIGRATION.[id number] Information not available 07/18/2022 Are You Blind Or Do You Have Difficulty Seeing? Yes Glasses MIGRATION.030832806 Information not available 07/18/2022 What Is Your Level Of Caffeine Consumption? Moderate MIGRATION.0301 393673 Information not available 07/18/2022 In The 14 Days Before Symptom Onset, Have You Had Close Contact With A Laboratory-conf irmed COVID-19 While That Case Was Ill? No MIGRATION.0301 [id number] Information not available 07/18/2022 In The 14 Days Before Symptom Onset, Have You Had Close Contact With A Person Who Is Under Investigation For COVID-19 While That Person Was Ill? No MIGRATION.0301 842600 Information not available 07/18/2022 Are You Deaf Or Do You Have Serious Difficulty Hearing? Yes Hearing Aides MIGRATION.0301 992102 Information not available 07/18/2022 What Type Of Diet Are You Following? REGULAR MIGRATION.0301 196386 Information not available 07/18/2022 Have There Been Any Changes To Your Family Or Social Situation? No MIGRATION.0301 700927 Information not available 07/18/2022 What Is The Fluoride Status Of Your Home? Fluoridated MIGRATION.0301 624372 Information not available 07/18/2022 Do You Use Insect Repellent Routinely? Yes MIGRATION.0301 866420 Information not available 07/18/2022 Where Do You Live? [place]House MIGRATION.0301 468725 Information not available 07/18/2022 Do You Have A Medical Power Of Automotive Wholesale Parts Advisor? No MIGRATION.0301 245165 Information not available 07/18/2022 What Was The Date Of Your Most Recent Tobacco Screening? 09/16/2023 [email or web address] Information not available 09/16/2023 Do You Have Any Pets? Yes MIGRATION.0301 386716 Information not available 07/18/2022 What Is Your Relationship Status? MIGRATION.0301 556340 Information not available 07/18/2022 Do You Have Smoke And Carbon Monoxide Detectors In Your Home? No Smoke Detectors No Carbon Monoxide MIGRATION.0301 528535 Information not available 07/18/2022 Are You Passively Exposed To Smoke? No MIGRATION.0301 973504 Information not available 07/18/2022 Are There Any Smokers In Your House? No MIGRATION.0301 774128 Information not available 07/18/2022 Do You Participate In Social Media? No MIGRATION.0301 099504 Information not available 07/18/2022 Do You Feel Stressed (tense, Restless, Nervous, Or Anxious, Or Unable To Sleep At Night)? [id number] MIGRATION.0301 551299 Information not available 07/18/2022 Do You Use Any Illicit Or Recreational Drugs? No MIGRATION.0301 010287 Information not available 07/18/2022 Do You Use Sunscreen Routinely? Yes MIGRATION.0301 869240 Information not available 07/18/2022 Have You Recently Traveled Abroad? No MIGRATION.0301 895367 Information not available 07/18/2022 Are You Currently In School? No MIGRATION.0301 188521 Information not available 07/18/2022 Sex: Male Functional Status Question Answer Note LastModified by Organizat ion Details LastModified Time Do you have difficulty walking or climbing stairs? Yes once in a while; L knee bone on bone MIGRATION.175410 4054 Information not available 07/18/2022 Do you have transportation difficulties? Yes MIGRATION.343471 2206 Information not available 07/18/2022 Are you able to walk? YESWOREST MIGRATION.612987 0472 Information not available 07/18/2022 Do you have difficulty doing errands alone? Yes MIGRATION.762609 9276 Information not available 07/18/2022 Are you able to care for yourself? Yes MIGRATION.743594 5644 Information not available 07/18/2022 Do you have difficulty dressing or bathing? Yes MIGRATION.446643 9857 Information not available 07/18/2022 What is your exercise level? None MIGRATION.287138 3246 Information not available 07/18/2022 Mental Status Question Answer Note LastModified by Organizat ion Details LastModified Time Do you have difficulty concentrating, remembering or making decisions? No MIGRATION.531276950 6 Information not available 07/18/2022 Family History Relationship Description Onset Age of this Age Resolved Age Notes LastModified by Organization Details LastModified Time Sister Family history of malignant neoplasm [email or web address] Not available 2022 09:58:42 Mother Hearing loss [email or web address] Not avail able 02/28/2023 12:04:58 Father Hearing loss [email or web address] Not avail able 02/28/2023 12:05:05 Unspecified Relation Diabetes mellitus AUNT [email or web address] Not available 2022 16:07:06 Medical History Condition Response BLINDNESS N RHEUMATIC FEVER N KIDNEY STONES N BLADDER PROBLEMS N MRSA N OTHER # 1 N POLIO N LUNG DISEASE/DISORDER N HISTORY OF DRUG ABUSE N COPD N RADIATION / CHEMOTHERAPY N Other # 2 N BLOOD DISEASES N SURGERY N EAR OR HEARING PROBLEMS N MUMPS N SHINGLES N BOWEL PROBLEMS N FEMALE PROBLEMS / INFECTIONS N DEPRESSION (INCLUDING POST ) N STROKE/TIA N THYROID DISEASE N ULCERS N BENIGN PROSTATIC HYPERPLASIA N MEASLES N CERVICALGIA N TB SKIN TEST N HYPOTENSION N MYOCARDIAL INFARCTION N OBESITY N PARAPELGIA N GERD/NAUSEA N ANEURYSM N URINARY/BLADDER/KIDNEY PROBLEMS [...] GLAUCOMA N FOOT PROBLEM N DIVERTICULITIS N CHICKENPOX N SLEEP APNEA N ALLERGIES/HAYFEVER N INFECTIOUS DISEASE N HEART ARRHYTHMIA N PROSTATE N INSOMNIA N HIGH CHOLESTEROL / HYPERLIPIDEMIA N HYPERTHYROIDISM N EYE PROBLEMS N EATING DISORDER N EDEMA N CHRONIC PAIN SYNDROME N CONSTIPATION N CAROTID BLOCKAGE N BACK / NECK PROBLEMS N HAVE YOU BEEN HOSPITALIZED OR SEEN IN [facility] IN THE PAST YEAR ? N ATHEROSCLEROSIS [...] DISORDER N ALZHEIMER'S DISEASE N PAIN N HERPES N DEMENTIA N HEADACHES/MIGRAINES N SEIZURES/EPILEPSY N VASCULAR DISEASE N PACEMAKER N DIZZINESS N HEART DISEASE/HEART PROBLEMS N KIDNEY DISEASE N DEVELOPMENTAL OR BEHAVIORAL DISORDERS N MULTIPLE SCLEROSIS N SCARLET FEVER N MENTAL DISORDER/ILLNESS N CARDIAC ARRHYTHMIA N CANCER: SPECIFY N PNEUMONIA N ATRIAL FIBRILLATION N Gall Stones N PULMONARY EMBOLISM N AUTOIMMUNE DISEASE N Immunizations Vaccine Type Date Status Note Provider Nam e and Address Organization Details Recorded Time SARS-COV-2 (COVID-19) vaccine, UNSPECIFIED 0 completed Not Available [facility] 07/18/2022 01:25:31 zoster recombinant 3 completed Amie Hall MA null, [facility] 12/04/2022 15:17:37 zoster recombinant 3 completed Amie Hall MA null, [facility] 02/14/2023 11:08:41 Influenza, high-dose, quadrivalent, PF 3 completed Ron Alvarez [facility] 02/25/2023 12:53:43 pneumococcal polysaccharide PPV23 3 completed Ron Alvarez [facility], [facility] 02/25/2023 17:43:56 Influenza, high-dose, trivalent, PF 4 completed Ron Alvarez [facility] 03/01/2024 12:22:01 Pneumococcal conjugate PCV20, polysaccharide [id number] conjugate, adjuvant, PF 4 completed Regine Xiao RN null, [facility] 03/16/2024 12:09:41 Past Encounters Encounter ID Performer Location Encounter Start Date Encounter Closed Date Diagnosis/Indication Diagnosis SNOMED-CT Code Diagnosis ICD10 Code Diagnosis Note [id number] Abdulkadir Michelle DPM [facility] [place] [address] [facility] [address] [place] [address] 08/12/2024 11:16:05 08/13/2024 13:34:10 Diabetes mellitus 15709037 E11.9 continue diabetic control per PCPfollow- up 4 months Onychomyco sis of toenails 552580856 B35.1 patient currently is using over-the-c ounter medication with curcuminwh ich has stained his toenails yellowappl y urea lotion to nails to soften toenailwil l allow patient to use over-the-c ounter medication and if not improved in 3 months will discuss other optionsnai ls debrided without incident Diabetic on insulin 1707 21274 Z79.4 [id number] Nitish Urrutia MD [facility] [address] [address] 08/25/2024 14:25:44 08/25/2024 15:03:02 Fall W19.XXXA Fall risk precaution s explained. Educated pt about alarming symptoms to monitor at home. Low back pain 383144968 M54.50 Pain in ri ght hip joint 1577052741 09333 M25.551 Pain of le ft knee joint 1480036665 31517 M25.562 Chronic Eruption 875688767 R21 Generalize d Obesity 349381181 E66.9 Health Concerns Section Related Observation LastModified by Organization Detai ls LastModified Time None Recorded Concern Status LastModified by Organization Details LastModified Time None Recorded Payers Encounter Date Sequence Insurance Name Policy Number Policy Wolff Covered Member ID Wolff Member ID Guarantor Name 08/25/2024 1 [facility] (MEDICARE REPLACEMENT/A DVANTAGE - HMO) [id number] Seamus Martinez [id number] Seamus Martinez Notes Date Note Type Note Provider Name and Address Organization Details Recorded Time 08/25/2024 text/html ACV: C/o fall at home [...] No drainage from it. Nitish Urrutia MD [address] [place] [address], [facility] [address], [place], [address], [place] - [facility] [employer] [facility] 08/25/2024 14:57:23
== END 2024-08-25 15:14 | disposition home or self-care (01) ==
PROVIDERS: PCP Family Medicine; Visit Provider Family Medicine
DX: M54.50 Low back pain, unspecified (principal); M25.551 Pain in right hip
CPT/HCPCS: 72100; 73502